=== PATIENT | male | born 1945 | race Hispanic/Latino ===

== ENCOUNTER 2021-10-12 09:52 | Emergency (ER) | payer OTHER ==
[~2021-10-12] VITALS: Ht 172.7 cm; Wt 75.3 kg
[2021-10-12 10:31] LABS: BASOPHILS % (AUTO) 0.3 % (0.0-5.0); EOSINOPHILS % (AUTO) 0.1 % (0.0-8.0); HEMATOCRIT 45.5 % (42-54); LYMPHOCYTES % (AUTO) 8.4 % (21.0-51.0); MEAN CORPUSCULAR HEMOGLOBIN 26.5 pg (27.0-33.0); MEAN CORPUSCULAR HGB CONC 31.9 g/dL (32.0-36.0); MONOCYTES % (AUTO) 5.2 % (3.0-13.0); NEUTROPHILS % (AUTO) 85.5 % (40.0-77.0); PLATELET COUNT (AUTO) 201 K/uL (130-400); RED BLOOD CELL COUNT(AUTO) 5.48 MIL/uL (4.50-6.20); RED CELL DISTRIBUTION WIDTH 13.2 % (11.0-15.5); WHITE BLOOD COUNT (AUTO) 13.3 K/uL (4.8-10.8)
[2021-10-12 10:41] LABS: CREATININE 1.7 mg/dL (0.5-1.5); POTASSIUM 4.7 mmol/L (3.5-5.1)
[2021-10-12 10:47] LABS: ALBUMIN 4.3 g/dL (3.5-5.0); TOTAL PROTEIN, SERUM 8.1 g/dL (6.0-8.3)
[2021-10-12 11:26] LABS: APPEARANCE,URINE CLEAR (CLEAR); BILIRUBIN,URINE NEGATIVE (NEGATIVE); COLOR,URINE YELLOW (YELLOW); GLUCOSE, URINE (UA) >=1000 mg/dL (NEGATIVE); KETONES,URINE >=80 mg/dL (NEGATIVE); LEUKOCYTE ESTERASE ,URINE NEGATIVE (NEGATIVE); NITRATE,URINE NEGATIVE (NEGATIVE); OCCULT BLOOD,URINE TRACE-INTACT (NEGATIVE); PROTEIN,URINE 30 mg/dL (NEGATIVE); UROBILINOGEN,URINE 0.2 mg/dL (0.2-1.0)
[2021-10-12 11:40] LABS: ABG OXYGEN SATURATION 57.5 % (95.0-99.0); BASE EXCESS,VENOUS BLOOD GAS -7.1 (-2.0-3.0); HCO3,VENOUS BLOOD GAS 17.2 (21.0-28.0); PCO2,VENOUS BLOOD GAS 32 (35-48); PH,VENOUS BLOOD GAS 7.352 (7.350-7.450)
[2021-10-12 12:02] LABS: BACTERIA,URINE Rare /HPF (None Seen); RBC,URINE None Seen /HPF (0-1); WBC,URINE None Seen /HPF (0-1)
[2021-10-12] MEDS ORDERED: ASPIRIN 81 MG EC TAB PO ONE (15:00)
[2021-10-12] MEDS ORDERED: ACETAMINOPHEN 325 MG TAB PO PRN ×2 (15:00)
[2021-10-12] MEDS ORDERED: ONDANSETRON 4MG INJ IV PRN (15:00)
[2021-10-12] MEDS ORDERED: BISACODYL 10 MG SUPP.RECT RC PRN (15:00)
[2021-10-12] MEDS ORDERED: FAMOTIDINE 20MG VIAL IV SCH (15:36)
[2021-10-12 15:50] LABS: HEMOGLOBIN A1C 8.5 % (4.0-6.0)
[2021-10-12 15:53] LABS: PROTEIN,URINE RANDOM 49.6 mg/dL (0-11.9)
[2021-10-12] MEDS ORDERED: IOHEXOL 350 MG/ML 100ML INFUS..BTL IV ONE (15:54)
[2021-10-12] MEDS ORDERED: POTASSIUM CHLORIDE 10MEQ/100ML 100 ML IV PRN (16:00)
[2021-10-12] MEDS ORDERED: DEXTROSE 5 %-0.45 % NACL 1,000 ML IV PRN (16:00)
[2021-10-12] MEDS ORDERED: 0.9%NACL 1000ML 1,000 ML IV SCH (16:00)
[2021-10-12] MEDS ORDERED: CLOPIDOGREL 75MG TAB PO ONE (16:00)
[2021-10-12 16:59] LABS: CREATININE 1.6 mg/dL (0.5-1.5); MAGNESIUM 2.1 mg/dL (1.80-2.40); POTASSIUM 4.5 mmol/L (3.5-5.1)
[2021-10-12] MEDS ORDERED: PHARMACY COMMUNICATION MISC SCH (17:30)
[2021-10-12 17:45] LABS: ABG BASE EXCESS -8.3 mmol/L (-2.0-3.0); ABG HCO3 14.3 mmol/L (21.0-28.0); ABG PCO2 24 mmHg (35-48)
[2021-10-12] MEDS ORDERED: MANNITOL 20% 500ML BAG 500 ML IV SCH (18:00)
[2021-10-12] MEDS ORDERED: PROPOFOL 1000 MG/100 ML 100 ML IV ONE (18:06)
[2021-10-12] MEDS ORDERED: PROPOFOL 10 MG/ML 20ML VIAL IV ONE (18:06)
[2021-10-12] MEDS ORDERED: FENTANYL CITRATE PF 50 MCG/1 ML 2ML VIAL ONE (18:10)
[2021-10-12 18:36] VITALS: BP 169/98
[2021-10-12 18:42] LABS: ABG BASE EXCESS -12.2 mmol/L (-2.0-3.0); ABG HCO3 13.4 mmol/L (21.0-28.0); ABG OXYGEN SATURATION 96.8 % (95.0-99.0); ABG PCO2 31 mmHg (35-48)
[2021-10-12] MEDS ORDERED: ATORVASTATIN 40 MG TABLET PO SCH (21:00)
[2021-10-13] MEDS ORDERED: CLOPIDOGREL 75MG TAB PO SCH (09:00)
[2021-10-13] MEDS ORDERED: ASPIRIN 81 MG EC TAB PO SCH (09:00)
== END 2021-10-12 19:19 | disposition short-term general hospital (02) ==
LOC: EDH 09:52 → EDHIP 14:49 → UNDOADMIN 14:49 → EDHIP 16:38 → 2CH 16:38 → EDHIP 17:44 → EDH 19:19
DX: I63.9 Cerebral infarction, unspecified (principal); E87.5 Hyperkalemia; G93.6 Cerebral edema; R26.89 Other abnormalities of gait and mobility; Z20.822 Contact with and (suspected) exposure to COVID-19; E11.9 Type 2 diabetes mellitus without complications; F41.9 Anxiety disorder, unspecified; I10 Essential (primary) hypertension; Z88.0 Allergy status to penicillin
CPT/HCPCS: 83036; 82435; 84156; 82570; 82947; 83735; 84132; 84295; 80048; 80053; 84300; 82803 ×3; 85025; 85018; 83605 ×2; 82010 ×2; 81001; 36415; 87635; 71045; 70450; 93880; 70553; 99291; 93005 ×2; 31500; 36600 ×3; C9803; J3010; J3490; J2704 ×2; J2405; A9900; 94002; Q9967